=== PATIENT | female | born 1980 | race Caucasian/White ===

== ENCOUNTER 2021-03-19 07:00 | Emergency (ER) | payer BC, SELFPAY ==
--- NOTE | ~2021-03-19 | XR_ITS ---
EXAMINATION: XR lumbar spine 2-3V DATE: 03/19/2021 08:24 INDICATION: Sudden onset right-sided low back pain TECHNIQUE: Anteroposterior and lateral views of the lumbar spine, and cone-down lateral view of the l umbosacral junction were obtained. COMPARISON: None. FINDINGS: 13 degree lumbar levoscoliosis. Sagittal alignment is normal. Vertebral body heights are normal. Mild right-sided disc height loss at L2-L3, L3-L4 and L4-L5. Lumbar facet joints appear unremarkable. Vis ualized portion of the upper sacrum and the bilateral sacroiliac joints are unremarkable. IMPRESSION: 1. Mild lumbar levoscoliosis with mild right-sided disc height loss at L2-L3 through L4-L5. Reviewed, dictated and finalized at location A. IMPRESSION: 1. Mild lumbar levoscoliosis with mild right-sided disc height loss at L2-L3 th rough L4-L5.
[2021-03-19 07:46] VITALS: BP 188/105; PULSE 74; RESP 18; TEMP 36.7; O2SAT 98
--- NOTE | 2021-03-19 07:50 | ED.BACK ---
HPI - Back Pain/Injury General Chief Complaint: Back Pain/Injury Stated Complaint: back pain Time Seen by Provider: 03/19/21 07:50 Source: patient Mode of arrival: ambulatory Limitations: no limitations History of Present Illness HPI Narrative: 40-year-old woman comes in today complaining of severe right lower back pain that started after bending over about 4 5 days ago. Patient states that she has had no other falls or injuries and has no history of prior severe back pain injury or surgery. She states that she has some intermittent numbness of her right upper leg to her knee but denies weakness, incontinence. She denies dysuria, frequent urination and incontinence. MD elicited complaint: back pain Onset (ago): day(s) (5) Timing: constant Severity: severe Quality: aching Location: lumbar spine and right lower back Radiation: buttocks and right upper leg Exacerbating factors: other (Prolonged sitting) Relieving factors: none Context: bending Associated symptoms: numbness Treatments prior to arrival: NSAIDS Work related injury: No Related Data Allergies Allergy/AdvReac Type Severity Reaction Status Date / Time No Known Allergies Allergy Verified 03/19/21 07:44 Review of Systems Review of Systems: All systems reviewed & are unremarkable except as noted in HPI and below Constitutional: Constitutional: Denies chills and Denies fever(s) ENT: Denies nasal congestion and Denies sore throat Cardiovascular: Cardiovascular: Denies chest pain Respiratory: Respiratory: Denies cough and Denies dyspnea Gastrointestinal: Gastrointestinal: Denies abdominal pain, Denies nausea and Denies vomiting Genitourinary: Genitourinary: Denies nocturia, Denies dysuria and Denies urinary incontinence Musculoskeletal: Musculoskeletal: Denies arthralgias and Denies joint swelling Neurologic: Denies vertigo, Denies dizziness, Denies syncope, Denies focal weakness and Reports numbness Allergic/Immunologic: Allergic/Immunologic: Denies lip swelling and Denies throat swelling PMFSH Past Medical History Medical History (Updated 03/19/21 @ 09:10 by Mak Dewitt MD) IBS (irritable bowel syndrome) Prediabetes Surgical History Surgical History H/O section Family History Family History Mother , Age 60 of Heart Failure Diabetes mellitus Heart disease Father Diabetes mellitus Depression Bipolar 1 disorder Grandparent , Unknown No problems noted. Grandparent , Unknown No problems noted. Grandparent No problems noted. 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 Resp: Effort & Inspection: normal respiratory effort and not labored Auscultation: clear to auscultation bilaterally, no rales, no rhonchi and no wheezes Cardio: Rate: regular rate Rhythm: regular rhythm Heart sounds: no murmurs Skin: General skin exam: normal color, no jaundice and no pallor Rashes: no rashes Neuro: General: patient oriented x3, moves all extremities, no focal motor deficits and CN's II-XI intact bilaterally Speech: normal speech Other: Antalgic gait. DTRs 1+ and symmetric in lower extremities. Extrem: General: normal to inspection and no clubbing, cyanosis or edema Psych: Appearance: grossly normal and well kempt Mental Status: ment
[2021-03-19 07:53] LABS: Add Urine Microscopic? YES; Appearance Urine Clear (Clear); Bilirubin Urine Negative (Negative); Blood Urine Negative (Negative); Color Urine Yellow (Yellow); Glucose Urine UA Negative (Negative); Ketones Urine Trace (Negative); Leukocyte Esterase Ur Negative (Negative); Nitrate Urine Negative (Negative); Protein Urine Negative (Negative); Specific Grav Ur >= 1.030 (1.010-1.020); Urobilinogen Urine 0.2 mg/dL (0.2-1.0); pH Urine 5.5 (5.0-8.0)
[2021-03-19 08:00] LABS: Bacteria Urine 3+ /hpf; Mucus Urine Heavy /lpf; RBC Urine 0-2 /hpf (0-2); Squamous Epithelial Cell Urine Moderate /hpf (Few); WBC Urine 0-3 /hpf (0-3)
[2021-03-19 08:01] LABS: Pregnancy On Board Control Positive; Urine Pregnancy Test Negative
[2021-03-19] MEDS: HYDROcodone/acetaminophen (*CRX) 5-325 MG TABLET 1 TAB PO (09:02)
[2021-03-19 09:06] VITALS: BP 159/108; PULSE 79; RESP 18; O2SAT 95
[2021-03-19 09:58] VITALS: BP 161/96; PULSE 66; RESP 17; O2SAT 98
== END 2021-03-19 09:43 | disposition home or self-care (01) ==
PROVIDERS: Emergency Provider Emergency Medicine
DX: M54.50 Low back pain, unspecified (principal); K58.9 Irritable bowel syndrome, unspecified; R73.03 Prediabetes
CPT/HCPCS: 72100; 81001; 81025; 99283; A9270

== ENCOUNTER 2021-05-08 15:06 | Emergency (ER) | payer OTHER, BC, SELFPAY ==
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
[2021-05-08 15:19] VITALS: BP 160/94; PULSE 86; RESP 18; TEMP 36.3; O2SAT 99
[2021-05-08 17:12] VITALS: BP 156/96; PULSE 79; RESP 18; TEMP 36.5; O2SAT 97
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
[2021-05-08] MEDS: ACETAMINOPHEN 500 MG TABLET 1000 MG PO (19:21)
[2021-05-08] MEDS: KETOROLAC (*BKC) 60 MG/2 ML VIAL IM (19:21)
[2021-05-08 19:37] VITALS: BP 155/106; PULSE 83; RESP 18; TEMP 36.3; O2SAT 97
== END 2021-05-08 19:39 | disposition home or self-care (01) ==
PROVIDERS: Emergency Provider Emergency Medicine
DX: S16.1XXA Strain of muscle, fascia and tendon at neck level, initial encounter (principal); K58.9 Irritable bowel syndrome, unspecified; R73.03 Prediabetes; V49.50XA Passenger injured in collision with unspecified motor vehicles in traffic accident, initial encounter
CPT/HCPCS: 72125; 72128; 72131; 96372; 99284; A9270; J1885

== ENCOUNTER 2022-04-25 09:43 | Observation (INO) | payer OTHER, SELFPAY ==
[2022-04-25] VITALS (31 sets, daily range): BP systolic 129–216; BP diastolic 70–115; PULSE 57–93; RESP 12–21; TEMP 36.3–36.6; O2SAT 96–100
--- NOTE | ~2022-04-25 | CT_ITS ---
EXAMINATION: CT brain wo con DATE: 04/25/2022 11:59 INDICATION: Left upper extremity weakness and tingling. TECHNIQUE: Computed tomography (CT) of the head was performed without intravenous contrast. The mA wa s adjusted according to patient size. Iterative reconstruction technique was employed. The dose-lengt h product was 681.00 mGy-cm. COMPARISON: None FINDINGS: There is no intracranial hemorrhage, acute infarction, or abnormal intracranial mass lesion . The ventricles are normal in size. There is mild mucosal thickening in left maxillary sinus. The ma stoid air cells are normal. The orbits are normal. IMPRESSION: 1. Normal brain. Reviewed, dictated and finalized at location A. FINISHING MATERIALS PREPARER IMPRESSION: 1. Normal brain.
--- NOTE | ~2022-04-25 | MR_ITS ---
EXAMINATION: MR cervical spine wo/w con DATE: 04/26/2022 07:13 INDICATION: Left upper extremity paresthesias and weakness. TECHNIQUE: Magnetic resonance imaging (MRI) of the cervical spine was performed without and with 19 m L MultiHance intravenous contrast. COMPARISON: CT cervical spine 05/08/2021 FINDINGS: Bone alignment is normal. Vertebral body heights and intervertebral disc heights are normal . The spinal cord signal intensity is normal. The following disc levels are specifically discussed: C2-C3: The disc does not extend beyond the endplate margin. There is no uncovertebral joint osteoarth ritis. There is mild bilateral facet joint osteoarthritis. There is no neural foraminal stenosis. The re is no central canal stenosis. C3-C4: The disc does not extend beyond the endplate margin. There is mild bilateral uncovertebral sarai nt osteoarthritis. There is mild bilateral facet joint osteoarthritis. There is no neural foraminal s tenosis. There is no central canal stenosis. C4-C5: The disc does not extend beyond the endplate margin. There is mild bilateral uncovertebral sarai nt osteoarthritis. There is mild bilateral facet joint osteoarthritis. There is mild bilateral neural foraminal stenosis. There is no central canal stenosis. C5-C6: There is a central protrusion. There is mild bilateral uncovertebral joint osteoarthritis. The re is mild right facet joint osteoarthritis. There is no neural foraminal stenosis. There is no centr al canal stenosis. C6-C7: The disc does not extend beyond the endplate margin. There is no uncovertebral joint osteoarth ritis. There is no facet joint osteoarthritis. There is no neural foraminal stenosis. There is no stanley tral canal stenosis. C7-T1: The disc does not extend beyond the endplate margin. There is no uncovertebral joint osteoarth ritis. There is no facet joint osteoarthritis. There is no neural foraminal stenosis. There is no stanley tral canal stenosis. IMPRESSION: 1. Mild cervical spondylosis. Reviewed, dictated and finalized at location A. ILITY CLAIMS MANAGER
--- NOTE | ~2022-04-25 | XR_ITS ---
EXAMINATION: XR lumbar puncture diagnostic DATE: 04/26/2022 13:43 INDICATION: Demyelinating disease. TECHNIQUE: The procedure including the risks, benefits, and alternatives was discussed with the patie nt. Risks discussed included spinal headache, bleeding, and infection. The patient understood the ris ks and agreed to proceed. A timeout was performed to verify the patient's name, date of , and procedure to be performed. The skin overlying the L2-L3 level was prepped and draped in usual steri le fashion. Subcutaneous 1% lidocaine was used for local anesthesia. A 20 gauge spinal needle was a dvanced under fluoroscopic guidance. The needle was removed and the entry site was cleaned and dresse d. There were no immediate complications. Fluoroscopy exposure time was 0.1 minutes. The total numbe r of images was 1. FINDINGS: Real-time fluoroscopy demonstrates the needle at the L2-L3 level. The opening pressure was 15 cm water (Normal range is variably defined as 6-20 cm water and up to 25 cm water in obese patient s. Pressure >25 cm water is one of the modified Dandy criteria for idiopathic intracranial hypertensi on). 13 mL of clear, colorless fluid was collected in 4 tubes. IMPRESSION: 1. Successful fluoro-guided lumbar puncture. Reviewed, dictated and finalized at location A. UNICATION ARTS LECTURER
--- NOTE | ~2022-04-25 | MR_ITS ---
EXAMINATION: MR brain/brain stem wo/w con DATE: 04/26/2022 07:13 INDICATION: Left upper extremity paresthesias and weakness. TECHNIQUE: Magnetic resonance imaging (MRI) of the brain and brainstem was performed without and with 19 mL MultiHance intravenous contrast. COMPARISON: Head CT 04/25/2022 FINDINGS: There are scattered areas of nonspecific increased T2-weighted signal intensity in the cere bral white matter. There is no acute ischemic infarct or intracranial hemorrhage. The ventricles are normal in size. There is mucosal thickening in left maxillary sinus. The orbits are normal. The masto id air cells are normal. IMPRESSION: 1. Mild nonspecific cerebral white matter disease. The differential diagnosis includes premature certified nursing attendant jacobo small vessel ischemic disease (especially if the patient has cardiovascular risk factors), demyel inating disease such as multiple sclerosis, drug abuse, vasculitis, or reactive astrocytosis (gliosis ) secondary to nonspecific etiology. Reviewed, dictated and finalized at location A. H PRINTING INSPECTOR IMPRESSION: 1. Mild nonspecific cerebral white matter disease. The differential diagnosis i ncludes premature chronic small vessel ischemic disease (especially if the sylvain ent has cardiovascular risk factors), demyelinating disease such as multiple sc lerosis, drug abuse, vasculitis, or reactive astrocytosis (gliosis) secondary t o nonspecific etiology.
--- NOTE | ~2022-04-25 | US_ITS ---
EXAMINATION: US venous doppler E DATE: 04/26/2022 07:32 INDICATION: Left upper limb swelling TECHNIQUE: Grayscale images without and with compression and Doppler images of the left upper extremi ty veins were obtained. Additional grayscale images of the region of pain at the posterior left upper arm were also obtained. COMPARISON: None. FINDINGS: The left internal jugular vein, subclavian vein, axillary vein, brachial vein, basilic vein, cephalic vein, radial vein, and ulnar vein are patent. Normal appearance to the subcutaneous fat and underlyi ng musculature with no abnormal masses or fluid collections identified at the region of maximal pain at the posterior left upper arm. IMPRESSION: 1. Patent left upper extremity veins. No evidence of venous thrombosis. Reviewed, dictated and finalized at location A. [employer]UT[employer]NT
--- NOTE | ~2022-04-25 | XR_ITS ---
EXAMINATION: XR chest 2V DATE: 04/25/2022 12:35 INDICATION: Left upper extremity weakness and pain and tingling. TECHNIQUE: Frontal and lateral views of the chest were obtained. COMPARISON: None. FINDINGS: The chest demonstrates clear lungs without pneumonia, pleural effusion, or pneumothorax. Th e heart size is normal. IMPRESSION: 1. No acute cardiopulmonary disease. Reviewed, dictated and finalized at location A. MING ASSISTANT
--- NOTE | 2022-04-25 11:33 | ECG_ITS ---
Measurements Intervals [place] Rate: 64 P: 26 ND: 166 QRS: 4 QRSD: 90 T: 4 QT: 453 QTc: 471 Interpretive Statements SINUS RHYTHM BORDERLINE T WAVE ABNORMALITY- INFERIOR LEADS BORDERLINE ECG NO PREVIOUS ECG AVAILABLE FOR COMPARISON Electronically Signed On 04-25-2022 12:51:11 OBSTETRICIAN GYNECOLOGIST by Vladislav Noland D.O.
--- NOTE | 2022-04-25 11:35 | ED.GENADULT ---
HPI - General Adult General Chief complaint: Neuro Symptoms/Deficit <DARIO Deleon Last Filed: 04/25/22 19:57> Stated complaint: LEFT ARM PAIN AND NUMBNESS <DARIO Deleon Last Filed: 04/25/22 19:57> Time Seen by Provider: 04/25/22 11:10 <DARIO Deleon Last Filed: 04/25/22 19:57> Source: patient <DARIO Deleon Last Filed: 04/25/22 19:57> Mode of arrival: ambulatory <DARIO Deleon Filed: 04/25/22 19:57> Limitations: no limitations <DARIO Deleon Filed: 04/25/22 19:57> History of Present Illness HPI narrative: Patient is a 41-year-old female who presents the ED with report of pain, tingling, weakness in left upper extremity. Patient reports she woke up yesterday morning with tingling in her left upper extremity, pain over her upper arm, minimal pain in her left shoulder/left-sided neck. She thought she may have slept on it wrong. She went to work yesterday and reports she felt weak in her left arm and left hand. She states she was dropping things at work and could not get her left hand to do what she wanted. Patient denies any slurred speech, facial droop, vision changes, headache, confusion, difficulty swallowing, difficulty breathing, chest pain, abdominal pain, nausea, vomiting, weakness or tingling of lower extremities. <DARIO Deleon Last Filed: 04/25/22 19:57> Related Data Allergies/adverse reactions: Allergies Allergy/AdvReac Type Severity Reaction Status Date / Time No Known Allergies Allergy Verified 04/25/22 16:04 <DARIO Deleon Last Filed: 04/25/22 19:57> Review of Systems Review of Systems: CONSTITUTIONAL: Denies fever, chills, or sweats. EYES: Denies visual changes. CARDIOVASCULAR: Denies chest pain, palpitations, or edema. RESPIRATORY: Denies cough or dyspnea. GASTROINTESTINAL: Denies abdominal pain, nausea, vomiting, or diarrhea. MUSCULOSKELETAL: Reports left upper extremity pain, left-sided neck pain. NEUROLOGIC: Reports tingling, weakness in left upper extremity. Denies dizziness, dysphagia, headache, numbness, slurred speech, facial droop, weakness or tingling in lower extremities. <Janae Rob PA-C - Last Filed: 04/25/22 19:57> All systems reviewed & are unremarkable except as noted in HPI and below <Janae Rob PA-C - Last Filed: 04/25/22 19:57> [facility] Past Medical History Medical History: Medical History (Updated 04/25/22 @ 14:09 by Janae Rob PA-C) History of pre-eclampsia IBS (irritable bowel syndrome) Prediabetes <Janae Rob PA-C - Last Filed: 04/25/22 19:57> Surgical History Surgical History: Surgical History H/O section <Janae Rob PA-C - Last Filed: 04/25/22 19:57> Family History Family History: Family History Mother , Age 60 of Heart Failure Diabetes mellitus Heart disease Father Diabetes mellitus Depression Bipolar 1 disorder Grandparent , Unknown No problems noted. Grandparent , Unknown No problems noted. Grandparent No problems noted. Grandparent Diabetes mellitus Liver failure <Janae Rob PA-C - Last Filed: 04/25/22 19:57> Social History Social History: Social History Smoking status: Former smoker Additional smoking assessment comments: smoked for 15 years Alcohol intake: current Drinks per week: 14 Alcohol use details: has 2 beers or glasses of wine a day Substance use: never Substance use type: does not use Has the Lack of Transportation Kept You From Medical Appointments or From Getting Medications?: No Within the Past 12 Months, Were You Worried
[2022-04-25] MEDS: SODIUM CHLORIDE 0.9% IV 1,000 ML 999 ML IV CONT (12:00)
[2022-04-25 12:07] LABS: Basophils Absolute Auto 0.1 K/mm3 (0.0-0.1); Basophils Percent Auto 0.8 % (0.2-1.2); Eosinophils Absolute Auto 0.1 K/mm3 (0-0.3); Eosinophils Percent Auto 1.8 % (0-4.4); Hematocrit 40.8 % (37.0-47.0); Hemoglobin 13.6 g/dL (12.0-15.0); Immature Granulocyte Absolute 0.02 K/mm3 (0.00-0.031); Immature Granulocyte Percent A 0.3 % (0-0.5); Lymphocytes Absolute Auto 2.83 K/mm3 (0.9-3.2); Lymphocytes Percent Auto 38.2 % (18.3-44.2); Mean Corpuscular HGB Conc 33.3 g/dl (32-36); Mean Corpuscular Hemoglobin 32.2 pg (26-34); Mean Corpuscular Volume 96.7 fl (80-100); Mean Platelet Volume 9.8 fl (7.4-10.4); Monocytes Absolute Auto 0.3 K/mm3 (0.1-0.6); Monocytes Percent Auto 4.6 % (2.6-8.5); Neutrophils Percent Auto 54.3 % (45.5-73.1); Platelet Count Result 269 k/mm3 (150-375); Red Blood Count 4.22 M/mm3 (4.2-5.4); Red Cell Distribution Width 13.3 % (11.5-14.5); White Blood Count 7.4 K/mm3 (4.5-10.0)
[2022-04-25 12:19] LABS: Alanine Aminotransferase 28 U/L (6-35); Albumin Level 4.6 g/dL (3.5-5.1); Alkaline Phosphatase 95 U/L (38-126); Anion Gap 15 mmol/L (8-16); Aspartate Amino Transferase 33 U/L (14-36); Bilirubin,Total 0.5 mg/dL (0.2-1.3); Blood Urea Nitrogen 14 mg/dL (7-17); Calcium 9.2 mg/dL (8.4-10.2); Carbon Dioxide 28 mmol/L (22-30); Chloride 97 mmol/L (98-107); Estimated Glomerular Filt Rate > 60; Glucose 92 mg/dL (65-110); Potassium 3.7 mmol/L (3.4-5.0); Sodium 140 mmol/L (137-145)
[2022-04-25 12:31] LABS: Troponin I < 0.012 ng/mL (0.000-0.034)
[2022-04-25] MEDS: hydrALAZINE HCL 20 MG/ML VIAL 10 MG IV PUSH ×2 (14:44→18:27)
--- NOTE | 2022-04-25 15:30 | PM.IMHP ---
H&P: HPI History of Present Illness Date/Time: 04/25/22 15:30 Chief Complaint: Left arm numbness and pain. Narrative: This is a very pleasant 41-year-old female without significant medical history who presented to the ED for evaluation of left arm numbness and pain. She woke up yesterday morning from sleep with tingling and aching discomfort in the left arm. Initially she thought she may have slept on it wrong and her reports that she was sleeping in a strange position. She had difficulties putting her hair in a ponytail because of the symptoms and while at work she noticed that her left arm and hand were weaker than usual and she was clumsy and she dropped several things as her left hand did not seem to be doing what she wanted it to do. Additionally she feels that the arm is a bit shaking and she has noticed muscle twitching which is unusual for her. On arrival to the emergency department her blood pressure was 188/105 and it has been persistently elevated despite receiving hydralazine 10 milligrams IV push x1. She had preeclampsia with her last in 2014 and since that time her blood pressures have been running pretty consistently in the 130s over 80s. With further questioning she has lost 100 pounds in the last 6 months through diet and exercise. She has been alternating walking and running 45 minutes several days a week and she does HIIT training and lifts weights however she does not think that she has injured herself. She goes on to say that over the last week or so she has been increasingly tired with her workouts, having to cut them off early due to shortness of breath and fatigue. She has occasional lightheadedness but no syncope or near syncope. She denies headache, vertigo, facial droop, dysarthria, dysphagia, injury, chest pain, pleuritic pain, palpitations, orthopnea, paroxysmal nocturnal dyspnea, nausea, vomiting, sweats, and lower extremity edema. Review of Systems Review of Systems: Twelve systems were reviewed and are negative except for as per HPI. [facility] [place] Past Medical History Medical History (Updated 04/25/22 @ 23:10 by Aurelia Landaverde PA-C) History of pre-eclampsia (2014) Irritable bowel syndrome Prediabetes Surgical History Surgical History (Updated 04/25/22 @ 23:07 by Aurelia Landaverde PA-C) H/O section History of 3 sections History of bunionectomy Family History Family History Mother , Age 60 of Heart Failure Diabetes mellitus Heart disease Father Diabetes mellitus Depression Bipolar 1 disorder Grandparent , Unknown No problems noted. Grandparent , Unknown No problems noted. Grandparent No problems noted. Grandparent Diabetes mellitus Liver failure Social History Social History (Updated 04/25/22 @ 23:07 by Aurelia Landaverde PA-C) Social History: Code status: Full code. Smoking status: Former smoker Additional smoking assessment comments: smoked for 15 years Alcohol intake: current Drinks per week: 14 Alcohol use details: has 2 beers or glasses of wine a day Substance use: never Substance use type: does not use Has the Lack of Transportation Kept You From Medical Appointments or From Getting Medications?: No Within the Past 12 Months, Were You Worried Whether Your Food Would Run Out Before You Got Money to Buy More?: Never True What is Your Housing Situation Today?: I Have Housing Are You Worried That in the Next 2 Months, You May Not Have Your Own Housing to Live In?: No Do You Have Trouble Paying Your Heating Or Electricity Bill?: No Do You Have Trouble Paying For Medicines?: No Are You Currently Unemployed and Looking for Work?: No Highest Level of Education Completed: Associate Degree Do You Have Trouble With Childcare or the Care of a Family Member?: No Additional living arrangements comments
[2022-04-25 15:42] LABS: SARS-CoV-2 RNA PCR Negative
--- NOTE | 2022-04-25 15:58 | ADMGEN ---
This patient, Linda Hadley, was admitted to [facility] Surg Room 327-01. Patient/family oriented to hospital policies and general routines including ID bracelet, bed and alarms, visiting hours, pain management, procedures, bathroom and other care routines, personal items, smoking policy, room service/diet, and visiting hours. Information on how to activate the Rapid Response Team has been discussed. Patient/Family are encouraged to report perceived risks to care and to ask questions if they do not understand what they are told or what they should do.
--- NOTE | 2022-04-25 18:30 | PC.NURSE ---
Sandra [place] notified of bp 200/100 and prn hydralazine given./
[2022-04-25 19:18] LABS: CRP < 0.5 mg/dL (<1.0); Creatine Kinase 85 U/L (30-135)
[2022-04-25 19:25] LABS: Erythrocyte Sedimentation Rate 35 mm/hr (0-20)
[2022-04-25 21:32] LABS: Free T4 Free Thyroxine Reflex 1.11 ng/dL (0.78-2.19)
[2022-04-25 22:20] LABS: Total Triiodothyronine (T3) 1.64 NG/ML (0.97-1.69)
[2022-04-26] VITALS (8 sets, daily range): BP systolic 149–170; BP diastolic 66–86; PULSE 56–77; RESP 16–20; TEMP 35.6–36.5; O2SAT 96–100
[2022-04-26 06:15] LABS: Hematocrit 39.6 % (37.0-47.0); Hemoglobin 13.4 g/dL (12.0-15.0); Mean Corpuscular HGB Conc 33.8 g/dl (32-36); Mean Corpuscular Hemoglobin 32.3 pg (26-34); Mean Corpuscular Volume 95.4 fl (80-100); Mean Platelet Volume 9.8 fl (7.4-10.4); Platelet Count Result 214 k/mm3 (150-375); Red Blood Count 4.15 M/mm3 (4.2-5.4); Red Cell Distribution Width 13.2 % (11.5-14.5); White Blood Count 5.3 K/mm3 (4.5-10.0)
[2022-04-26 06:23] LABS: Potassium 3.9 mmol/L (3.4-5.0)
[2022-04-26 06:33] LABS: Anion Gap 11 mmol/L (8-16); Blood Urea Nitrogen 8 mg/dL (7-17); Calcium 9.1 mg/dL (8.4-10.2); Carbon Dioxide 23 mmol/L (22-30); Chloride 104 mmol/L (98-107); Cholesterol 228 mg/dL (0-200); Estimated Glomerular Filt Rate > 60; Glucose 96 mg/dL (65-110); HDL Direct 72 mg/dL; Magnesium 2.1 mg/dL (1.6-2.3); Sodium 138 mmol/L (137-145); Triglycerides 151 mg/dL (<150)
[2022-04-26 06:34] LABS: LDL Cholesterol Direct 117 mg/dL
[2022-04-26] MEDS: ASPIRIN 81 MG ENTERIC TABLET PO (08:27)
--- NOTE | 2022-04-26 10:07 | WPDNEURCNPN ---
Assessment and Plan Assessment and plan (1) Weakness of left upper extremity: Code(s): R29.898 - Other symptoms and signs involving the musculoskeletal system Status: Acute (2) Arm paresthesia, left: Code(s): R20.2 - Paresthesia of skin Status: Acute (3) Hypertensive urgency: Code(s): I16.0 - Hypertensive urgency Status: Acute Assessment and Plan: Ms. Hadley is a 41 year old female with a history of HTN and prediabetes presenting for evaluation of LUE weakness. Initially BP elevated, so there was concern that it may be due to hypertensive emergency, but BP is lower and patient is still reporting weakness of the left hand. MRI showed non specific areas of white matter disease, but no contrast enhancement. Given patient's age, will need to evaluate for demyelinating disease such as multiple sclerosis. MS related labs will take some time to come back so we have discussed empirically treating with steroids once the lumbar puncture is complete since patient is still having weakness in the left hand and believes that it may interfere with her ability to work. Patient is agreeable, but is apprehensive about staying in the hospital for several days for IV steroids. Other etiologies to consider are radiculopathy (although cervical spine MRI only showed mild spondylosis) or compressive neuropathy (ulnar or carpal tunnel syndrome). Plan - Will obtain lumbar puncture with CSF studies (cell count, protein, glucose, culture/gram stain, oligoclonal bands) - After LP, can discharge with high dose oral steroids given symptoms are relatively mild (Prednisone 1250 mg per day x 3 days) with PPI - Will need follow-up in Neurology clinic in 3 months Consult date: 04/26/22 Time Seen: 10:07 Reason for consult: LUE weakness HPI: Linda Hadley is a 41 year old female with a history of HTN and diabetes presenting for evaluation of left upper extremity numbness/weakness. In the morning 04/24, patient noted tingling in the left upper extremity as well as tenderness over the proximal left arm. Throughout the day she noted that her left arm was weaker, and she was having trouble with fine motor activity. She presented to the ED yesterday where she was noted to have left upper extremity pronator drift, but no other findings. Her BP on admission was 216/106. CT head was negative for acute process. She has never had episodes of focal weakness or numbness in the past. No prior history of unilateral vision loss. She had an MRI brain w/wo which showed T2 hyperintense lesion in the juxtacortical and periventricular areas without any contrast enhancement. MRI cervical spine showed mild spondylosis. Patient reports that her left sided weakness has improved since admission, but she still feels that she has difficulty with fine motor movement in the left hand. Review of Systems Constitutional: Constitutional: Reports weakness Eyes: Eyes: Reports no additional eye complaints ENT: Reports system reviewed and no additional complaints, except as documented Cardiovascular: Cardiovascular: Reports no additional cardiovascular complaints Respiratory: Respiratory: Reports no additional respiratory complaints Gastrointestinal: Gastrointestinal: Reports no additional gastrointestinal complaints Genitourinary: Genitourinary: Reports no additional female genitourinary complaints Musculoskeletal: Musculoskeletal: Reports no additional musculoskeletal complaints Integumentary/Breasts: Skin/Breast: Reports system reviewed and no additional complaints, except as docu Neurologic: Reports as per HPI Psychiatric: Psychiatric: Reports no additional psychiatric complaints PMFSH Past Medical History Medical History History of pre-eclampsia (2014) Irritable bowel syndrome Prediabetes Surgical History Surgical History H/O section Hi
[2022-04-26 10:59] LABS: Prothrombin Time 13.2 Seconds (11.1-14.7)
[2022-04-26 11:00] LABS: Partial Thromboplastin Time 30.6 SECONDS (22.3-36.8)
--- NOTE | 2022-04-26 13:06 | PM.IMPN ---
Progress Note: A&P Assessment and Plan (1) Weakness of left upper extremity: Code(s): R29.898 - Other symptoms and signs involving the musculoskeletal system Status: Acute Assessment and Plan: The patient presented for evaluation of left arm weakness and pain for couple of days as detailed in HPI. She reports dropping things in her left hand, as well as difficulty pulling her hair back and gripping. BP 216/106 on admission and improved with IV hydralazine. Hydralazine p.r.n. for hypertension CT head no acute findings. brain MRI with mild nonspecific cerebral white matter disease. Cervical spine MRI with mild cervical spondylosis. Neurology has been consulted and their input is appreciated. Lumbar puncture completed on 04/26/22 and fluid analysis pending. Will start high-dose pulse dose prednisone for possible MS exacerbation- 675 mg PO BID x3 days. This dose was discussed with Neurology who recommends this dosing as well. Echocardiogram pending Left upper extremity venous Doppler negative for DVT. (2) Arm paresthesia, left: Code(s): R20.2 - Paresthesia of skin Status: Acute Assessment and Plan: As above. (3) Hypertensive urgency: Code(s): I16.0 - Hypertensive urgency Status: Acute Assessment and Plan: BP 216/106 on admission and improved with IV hydralazine. Hydralazine p.r.n. for hypertension No prior history of hypertension. BP 149/66 and HR 77 Started on aspirin 81 mg daily (4) Heart murmur: Code(s): R01.1 - Cardiac murmur, unspecified Status: Acute Assessment and Plan: Echocardiogram has been ordered to evaluate her cardiac murmur Doppler ultrasound ordered to rule out DVT given mild swelling. Plan CODE STATUS: FULL CODE Disposition: home when symptoms improved. Possible discharge in am if stable on high-dose steroids. Time Spent With Patient Time with patient: 15 - 25 minutes Subjective Date/time seen: 04/26/22 13:06 She still has some hand grasp weakness and paresthesia to her left hand and forearm. She thinks is might be slightly improved. She also remembers an episode of transient blurry vision to both eyes in January of last year that she attributed to being borderline diabetic. Review of Systems Review of Systems: All systems reviewed & are unremarkable except as noted in HPI and below Exam Narrative: General: no distress. Lying in bed. HEENT: Normocephalic, PERRL, EOMI. Sclera anicteric. Oral mucosa moist. Oropharynx clear. Hearing grossly intact. Neck: Supple. No midline vertebral tenderness. No tenderness palpation over the paraspinous muscles. Faint carotid bruits versus more likely radiation of cardiac murmur. Respiratory: Lungs are clear to auscultation bilaterally. Cardiovascular: Regular rate and rhythm with S1-S2. Systolic murmur heard at the upper sternal border but appreciated throughout the precordium. Gastrointestinal: Abdomen is soft, nontender, and nondistended with positive bowel sounds. Skin: Warm and dry. No rash or lesions on limited exam. Extremities: No cyanosis, clubbing, or lower extremity edema. Mild swelling over the left biceps and dorsum of the left hand. Radial and pedal pulses intact. Neurological: Alert and orienteds4. Cranial nerves 2-12 intact. Speech is clear. No facial asymmetry. Left hand black pickler slightly weaker when compared to the right. Normal ctldji-pr-whjo and rapid alternating movements. No pronator drift although she appears to strain to hold her left arm equal to right. Sensation mildly decreased left hand and anterior forearm. Intact heel to araujo. Psychiatric: Pleasant and cooperative with normal mood and affect. Objective Data Vital Signs Vital Signs: Vital Signs - 24 hr 04/25/22 13:28 04/25/22 14:46 04/25/22 15:01 Temperature Pulse Rate 68 78 78 Respiratory Rate 19 21 H 16 Blood Pressure 170/81 H 203/115 H 183/74 H Pulse Oximetry 100 100 100
[2022-04-26 13:51] LABS: Appearance CSF Clear (Clear); CSF source CSF; Color CSF Colorless (Colorless); Red Blood Cell CSF 4 (0-2)
[2022-04-26 13:54] LABS: Nucleated Cell CSF 0 /uL (0-5)
[2022-04-26 13:56] LABS: Glucose CSF 60 mg/dL (40-70); Total Protein CSF 40 mg/dL (12-60)
--- NOTE | 2022-04-26 15:19 | PHAR ---
VERIFIED PREDNISONE 675MG DOSE WITH CATY JONES - PATIENT IS ON HIGH DOSE STEROID FOR MS EXACERBATION
[2022-04-26] MEDS: predniSONE 20 MG TABLET 660 MG PO (17:44)
[2022-04-26] MEDS: predniSONE 5 MG TABLET 15 MG PO (17:46)
[2022-04-26] MEDS: MELATONIN 5 MG TABLET PO (21:13)
[2022-04-27] VITALS: PULSE 56
[2022-04-27 04:00] VITALS: PULSE 54
[2022-04-27 06:00] VITALS: BP 163/96; PULSE 73; RESP 18; TEMP 35.8; O2SAT 100
[2022-04-27 06:10] LABS: Hematocrit 43.3 % (37.0-47.0); Hemoglobin 14.6 g/dL (12.0-15.0); Mean Corpuscular HGB Conc 33.7 g/dl (32-36); Mean Corpuscular Hemoglobin 32.2 pg (26-34); Mean Corpuscular Volume 95.4 fl (80-100); Mean Platelet Volume 10.1 fl (7.4-10.4); Platelet Count Result 238 k/mm3 (150-375); Red Blood Count 4.54 M/mm3 (4.2-5.4); White Blood Count 4.9 K/mm3 (4.5-10.0)
[2022-04-27 08:00] VITALS: PULSE 73
[2022-04-27] MEDS: predniSONE 20 MG TABLET 660 MG PO (08:18)
[2022-04-27] MEDS: ASPIRIN 81 MG ENTERIC TABLET PO (08:19)
[2022-04-27] MEDS: predniSONE 5 MG TABLET 15 MG PO (08:19)
[2022-04-27 08:40] LABS: Alanine Aminotransferase 28 U/L (6-35); Albumin Level 4.8 g/dL (3.5-5.1); Alkaline Phosphatase 84 U/L (38-126); Anion Gap 14 mmol/L (8-16); Aspartate Amino Transferase 22 U/L (14-36); Bilirubin,Total 0.5 mg/dL (0.2-1.3); Blood Urea Nitrogen 8 mg/dL (7-17); Carbon Dioxide 25 mmol/L (22-30); Chloride 101 mmol/L (98-107); Estimated Glomerular Filt Rate > 60; Glucose 152 mg/dL (65-110); Potassium 3.8 mmol/L (3.4-5.0); Sodium 140 mmol/L (137-145)
--- NOTE | 2022-04-27 08:51 | WPDNEUROPN ---
Progress Note: A&P Assessment and Plan (1) Weakness of left upper extremity: Code(s): R29.898 - Other symptoms and signs involving the musculoskeletal system Status: Acute (2) Arm paresthesia, left: Code(s): R20.2 - Paresthesia of skin Status: Acute (3) Hypertensive urgency: Code(s): I16.0 - Hypertensive urgency Status: Acute Plan Ms. Hadley is a 41 year old female with a history of HTN and prediabetes presenting for evaluation of LUE weakness. Initially BP elevated, so there was concern that it may be due to hypertensive emergency, but after BP normalized, patient was still reporting weakness of the left hand. MRI showed non specific areas of white matter disease, but no contrast enhancement. Given patient's age, recommended evaluation for demyelinating disease such as multiple sclerosis. MS related labs will take some time to come back so she was treated empirically with steroids since she was still having weakness/sensory changes of the left hand (now improved). Other etiologies to consider are radiculopathy (although cervical spine MRI only showed mild spondylosis) or compressive neuropathy (ulnar or carpal tunnel syndrome). Plan - CSF MS panel pending - High dose prednisone 1250mg daily x 3 days - Will need follow-up in Neurology clinic in 3 months - Ok to discharge Subjective Date/time seen: 04/27/22 08:51 Interval history: Linda Hadley is a 41 year old female with a history of HTN and diabetes presenting for evaluation of left upper extremity numbness/weakness. In the morning 04/24, patient noted tingling in the left upper extremity as well as tenderness over the proximal left arm. Throughout the day she noted that her left arm was weaker, and she was having trouble with fine motor activity. She presented to the ED yesterday where she was noted to have left upper extremity pronator drift, but no other findings. Her BP on admission was 216/106. CT head was negative for acute process. She has never had episodes of focal weakness or numbness in the past. No prior history of unilateral vision loss. She had an MRI brain w/wo which showed T2 hyperintense lesion in the juxtacortical and periventricular areas without any contrast enhancement. MRI cervical spine showed mild spondylosis. Patient feels that numbness and weakness has improved since yesterday. She is still having some difficulty with typing with her left hand. She had lumbar puncture yesterday. Cell count and protein were normal. MS panel is pending. Patient reports remote history of bilateral blurry vision that was transient, and also lower back pain. Review of Systems Constitutional: Constitutional: Reports no additional constitutional complaints Eyes: Eyes: Reports no additional eye complaints ENT: Reports system reviewed and no additional complaints, except as documented Cardiovascular: Cardiovascular: Reports no additional cardiovascular complaints Respiratory: Respiratory: Reports no additional respiratory complaints Gastrointestinal: Gastrointestinal: Reports diarrhea Genitourinary: Genitourinary: Reports no additional female genitourinary complaints Musculoskeletal: Musculoskeletal: Reports no additional musculoskeletal complaints Integumentary/Breasts: Skin/Breast: Reports system reviewed and no additional complaints, except as docu Neurologic: Reports as per HPI Psychiatric: Psychiatric: Reports no additional psychiatric complaints Exam Const: General: comfortable and no acute distress HENMT: Mouth: Yes moist mucous membranes Eyes: Pupils: Equal, round and reactive pupils present EOM: EOMs intact bilaterally Resp: Effort & Inspection: normal respiratory effort Auscultation: clear to auscultation bilaterally Cardio: Rate: regular rate Rhythm: regular rhythm GI: GI Palp: Yes Soft to palpation Auscultation: normal bowel sounds Skin: General skin exam: normal color Neuro: Other: AOx3, Pupil
[2022-04-27] MEDS: ACETAMINOPHEN 325 MG TABLET 650 MG PO (10:58)
[2022-04-27] MEDS: amLODIPine BESYLATE 5 MG TABLET PO (11:00)
[2022-04-27 12:00] VITALS: PULSE 83
--- NOTE | 2022-04-27 14:37 | PM.DS ---
DS: Admitting Diagnosis Discharge Date 04/27/2022 Admitting Diagnosis Left upper extremity weakness DS: Discharge Diagnosis Discharge Diagnosis (1) Weakness of left upper extremity: Code(s): R29.898 - Other symptoms and signs involving the musculoskeletal system Status: Acute Assessment and Plan: The patient presented for evaluation of left arm weakness and pain for couple of days as detailed in HPI. She reports dropping things in her left hand, as well as difficulty pulling her hair back and gripping. She was seen in consultation by Neurology during admission. CT of the head showed no acute findings. Brain MRI with mild nonspecific cerebral white matter disease. Cervical spine MRI with mild cervical spondylosis. Lumbar puncture completed on 04/26/2022 with fluid analysis pending at time of discharge. Concern for MS and CSF MS panel is pending. Started on high dose prednisone for possible MS exacerbation - 625 mg BID for total of 3 days. Follow up with Neurology as an outpatient to review LP results and monitor. LUE venous doppler negative for DVT. Pt had symptomatic improvement following steroids. (2) Arm paresthesia, left: Code(s): R20.2 - Paresthesia of skin Status: Acute Assessment and Plan: As above. (3) Hypertensive urgency: Code(s): I16.0 - Hypertensive urgency Status: Acute Assessment and Plan: BP 216/106 on admission and improved with IV hydralazine. No prior history of hypertension. Blood pressures remained elevated in the 160s-180s systolic. Started on amlodipine 5 mg daily with BP in 160s systolic at time of discharge. Instructed to monitor blood pressures at home and follow with PCP in 1 week for monitoring. (4) Heart murmur: Code(s): R01.1 - Cardiac murmur, unspecified Status: Acute Assessment and Plan: Noted to have systolic murmur on exam. Echocardiogram not able to be completed during admission therefore patient will follow up with PCP to obtain. DS: Summary Hospital Course Hospital Course: Date of admission: 04/25/2022 Date of discharge: 04/27/2022 Linda Snider is a 41-year-old female with a history of IBS and prediabetes who presented to the emergency department on 04/25/2022 with complaints of pain, tingling, and weakness of her left upper extremity. On presentation to the ED, patient was hypertensive to 216/106, additional vital signs stable, laboratory workup unremarkable, troponin negative, CT of the head showed normal brain and CXR showed no acute cardiopulmonary disease. Patient was admitted to the hospitalist service for further evaluation and management was seen in consultation by Neurology. Please see above for further details. Patient had symptomatic improvement with high-dose prednisone which she will continue as an outpatient. She will follow-up with neurology for further monitoring. She felt comfortable with plans for return home and was discharged in hemodynamically stable condition on 04/27/2022. Discussed with the patient and her worrisome signs and symptoms for which to monitor and she was educated on her medications. I arranged follow up appointment with her PCP on 05/05/22. Time Spent with Patient Time attestation: Total time spent providing and/or coordinating discharge services: 50 minutes Time spent: Greater than 30 minutes Specific discharge activities: Patient education. Communication with specialists and outpatient pharmacy regarding prednisone. Call to PCP to schedule outpatient follow up appointment. Exam Narrative: General: Well-nourished, well-appearing 41-year-old female, sitting up in bed, comfortable, NARD Neuro: awake, alert and oriented x4, speech clear, no focal neuro deficits noted HEENMT: normocephalic, atraumatic, EOMI, sclerae anicteric, moist oral mucosa Respiratory: clear to auscultation bilaterally, nonlabored breathing Cardio: regular rate, regular rhythm with
[2022-05-02 09:26] LABS: Albumin, CSF 14.8 mg/dL (8.0-42.0); Albumin, Serum 3.7 g/dL (3.5-5.2); IgG Index, CSF 0.49 (<0.66); IgG, CSF 1.9 mg/dL (0.8-7.7); Immunoglobulin G, Serum 967 mg/dL (600-1640); Myelin Basic Protein, CSF <2.0 mcg/L (<=4.0); Synthesis Rate IgG, CSF -2.9 mg/24 h (-9.9-3.3)
== END 2022-04-27 15:15 | disposition home or self-care (01) ==
LOC: ANHED 14:52 → ANH3MEDSUR 15:20
PROVIDERS: Nurse Practitioner Family; Physician Assistant; Student in an Organized Health Care Education/Training Program; Admitting Provider Hospitalist; Emergency Provider Emergency Medicine; PCP Family Medicine Sports Medicine; Visit Provider Internal Medicine
DX: R29.898 Other symptoms and signs involving the musculoskeletal system (principal); R20.2 Paresthesia of skin; I16.0 Hypertensive urgency; R01.1 Cardiac murmur, unspecified; R90.82 White matter disease, unspecified; M47.812 Spondylosis without myelopathy or radiculopathy, cervical region; M79.622 Pain in left upper arm; M54.2 Cervicalgia; K58.9 Irritable bowel syndrome, unspecified; R73.03 Prediabetes; Z20.822 Contact with and (suspected) exposure to COVID-19; F10.90 Alcohol use, unspecified, uncomplicated; Z87.891 Personal history of nicotine dependence; Z83.3 Family history of diabetes mellitus; Z82.49 Family history of ischemic heart disease and other diseases of the circulatory system
CPT/HCPCS: 36415; 62328; 70450; 70553; 71046; 72156; 80048; 80053; 80061; 82040; 82042; 82550; 82784; 82945; 83735; 83873; 83916; 84157; 84439; 84443; 84480; 84484; 85025; 85027; 85610; 85652; 85730; 86140; 87070; 89051; 93005; 93971; 96361; 96374; 96376; 99285; A9270; A9577; G0378; J0360; J7030; J7512; U0003; U0005

== ENCOUNTER 2022-05-11 10:56 | Emergency (ER) | payer OTHER, SELFPAY ==
[2022-05-11] VITALS (26 sets, daily range): BP systolic 143–177; BP diastolic 71–116; PULSE 77–97; RESP 10–31; TEMP 36.9; O2SAT 95–100
--- NOTE | ~2022-05-11 | XR_ITS ---
EXAMINATION: XR chest 2V DATE: 05/11/2022 12:36 INDICATION: Arm tingling. TECHNIQUE: Frontal and lateral views of the chest were obtained. COMPARISON: Chest 2 views 04/25/2022 FINDINGS: The chest demonstrates clear lungs without pneumonia, pleural effusion, or pneumothorax. Th e heart size is normal. IMPRESSION: 1. No acute cardiopulmonary disease. Reviewed, dictated and finalized at location A. ROASTER
--- NOTE | 2022-05-11 11:49 | ECG_ITS ---
Measurements Intervals Gary Rate: 78 P: -62 WY: 145 QRS: 14 QRSD: 84 T: 9 QT: 390 QTc: 445 Interpretive Statements SINUS RHYTHM NONSPECIFIC T-WAVE ABNORMALITY- ANT/INF LEADS BORDERLINE ECG COMPARED TO ECG 04/25/2022 12:08:13 NO SIGNIFICANT CHANGES Electronically Signed On 05-11-2022 12:28:15 RUG SCRATCHER by Vladislav Noland D.O.
[2022-05-11 12:34] LABS: Basophils Percent Auto 0.3 % (0.2-1.2); Eosinophils Absolute Auto 0.1 K/mm3 (0-0.3); Eosinophils Percent Auto 0.8 % (0-4.4); Hematocrit 36.8 % (37.0-47.0); Hemoglobin 12.8 g/dL (12.0-15.0); Immature Granulocyte Absolute 0.05 K/mm3 (0.00-0.031); Immature Granulocyte Percent A 0.4 % (0-0.5); Lymphocytes Absolute Auto 1.77 K/mm3 (0.9-3.2); Lymphocytes Percent Auto 15.4 % (18.3-44.2); Mean Corpuscular HGB Conc 34.8 g/dl (32-36); Mean Corpuscular Hemoglobin 32.2 pg (26-34); Mean Corpuscular Volume 92.7 fl (80-100); Mean Platelet Volume 9.4 fl (7.4-10.4); Monocytes Absolute Auto 0.4 K/mm3 (0.1-0.6); Monocytes Percent Auto 3.7 % (2.6-8.5); Neutrophils Absolute Auto 9.1 K/mm3 (1.3-6.7); Neutrophils Percent Auto 79.4 % (45.5-73.1); Platelet Count Result 264 k/mm3 (150-375); Red Blood Count 3.97 M/mm3 (4.2-5.4); Red Cell Distribution Width 12.9 % (11.5-14.5); White Blood Count 11.5 K/mm3 (4.5-10.0)
[2022-05-11 12:40] LABS: Alanine Aminotransferase 49 U/L (6-35); Albumin Level 4.7 g/dL (3.5-5.1); Alkaline Phosphatase 107 U/L (38-126); Anion Gap 12 mmol/L (8-16); Aspartate Amino Transferase 43 U/L (14-36); Bilirubin,Total 0.7 mg/dL (0.2-1.3); Blood Urea Nitrogen 12 mg/dL (7-17); Calcium 9.6 mg/dL (8.4-10.2); Carbon Dioxide 25 mmol/L (22-30); Chloride 103 mmol/L (98-107); Estimated CRCL calculation 127 ml/min; Estimated Glomerular Filt Rate > 60; Glucose 99 mg/dL (65-110); Potassium 3.9 mmol/L (3.4-5.0); Sodium 140 mmol/L (137-145)
[2022-05-11 12:50] LABS: INR 1.1; Prothrombin Time 13.4 Seconds (11.1-14.7)
[2022-05-11 12:51] LABS: Partial Thromboplastin Time 32.7 SECONDS (22.3-36.8)
[2022-05-11 12:52] LABS: Troponin I < 0.012 ng/mL (0.000-0.034)
[2022-05-11 13:06] LABS: Influenza A QL RT-PCR Negative (Negative); Influenza B QL RT-PCR Negative (Negative); SARS-CoV-2 RNA PCR Negative
[2022-05-11 15:09] LABS: Troponin I < 0.012 ng/mL (0.000-0.034)
--- NOTE | 2022-05-11 15:26 | ED.GENADULT ---
HPI - General Adult General Chief complaint: Anxiety Stated complaint: htn, shaking Time Seen by Provider: 05/11/22 11:19 History of Present Illness HPI narrative: Patient is a 41-year-old female who presents ER with chest tightness. Reports had feeling of impending doom while driving. She had some tingling in her arms. Denies any new stress despite the fact that she was recently worked up with arm numbness and reports that she could potentially have MS. She has no exertional chest pain. No fevers or chills or sweats. Still feels slight anxiousness. No history of heart disease. Related Data Allergies Allergy/AdvReac Type Severity Reaction Status Date / Time No Known Allergies Allergy Verified 04/25/22 16:04 Review of Systems Review of Systems: All systems reviewed & are unremarkable except as noted in HPI and below Constitutional: Constitutional: Denies chills, Denies fatigue and Denies fever(s) ENT: Denies nasal congestion and Denies sore throat Cardiovascular: Cardiovascular: Reports chest pain, Reports rapid heart rate and Denies radiating jaw, neck or arm pain Respiratory: Respiratory: Denies cough, Denies dyspnea and Denies wheezing Gastrointestinal: Gastrointestinal: Denies abdominal pain, Denies nausea and Denies vomiting Psychiatric: Psychiatric: Reports anxiety, Denies depression and Denies homicidal ideation [facility] Past Medical History Medical History History of pre-eclampsia (2014) Irritable bowel syndrome Prediabetes Surgical History Surgical History H/O section History of 3 sections History of bunionectomy Family History Family History Mother , Age 60 of Heart Failure Diabetes mellitus Heart disease Father Diabetes mellitus Depression Bipolar 1 disorder Grandparent , Unknown No problems noted. Grandparent , Unknown No problems noted. Grandparent No problems noted. Grandparent Diabetes mellitus Liver failure Social History Social History Social History: Code status: Full code. Smoking status: Former smoker Additional smoking assessment comments: smoked for 15 years Alcohol intake: current Drinks per week: 14 Alcohol use details: has 2 beers or glasses of wine a day Substance use: never Substance use type: does not use Lack of Transportation: No Lack of Food: Never True Current Housing: I Have Housing Concerned About Future Housing: No Difficulty Paying Gas/Electric Bills: No Difficulty Paying for Meds: No Currently Unemployed: No Education: Associate Degree Difficulty w/ Childcare or Family Care: No Additional living arrangements comments: The patient lives with her and 3 children in [place]. Additional occupation/education comments: Works at [employer]. Spiritual care concerns: No Exam Narrative: GENERAL: Well-appearing, well-nourished, and in no acute distress. HEAD: Normocephalic, atraumatic. EYES: PERRL and EOMI. ENT: Mucous membranes moist. CHEST: Clear to auscultation. No respiratory distress. HEART: Regular rate and rhythm. Normal peripheral pulses. ABDOMEN: Soft, nontender, nondistended. EXTREMITIES: Normal range of motion. No edema. SKIN: Warm, dry, no rash. NEURO: Alert and oriented x3. PSYCH: Normal mood and affect. Course Course Emergency Course: Patient resting comfortably. Troponins negative x2. Discharge home. Vital Signs Vital signs: Vital Signs Temperature 98.4 F 05/11/22 11:05 Pulse Rate 94 05/11/22 11:05 Respiratory Rate 18 05/11/22 11:05 Blood Pressure 177/83 H 05/11/22 11:05 Pulse Oximetry 99 05/11/22 11:05 Oxygen Delivery Room Air 05/11/22 11:05 Temperature 98.4 F 05/11
== END 2022-05-11 16:01 | disposition home or self-care (01) ==
PROVIDERS: Emergency Provider Emergency Medicine
DX: F41.9 Anxiety disorder, unspecified (principal); Z20.822 Contact with and (suspected) exposure to COVID-19; K58.9 Irritable bowel syndrome, unspecified; R73.03 Prediabetes; Z87.891 Personal history of nicotine dependence; R94.31 Abnormal electrocardiogram [ECG] [EKG]
CPT/HCPCS: 36415; 71046; 80053; 84484; 85025; 85610; 85730; 87636; 93005; 99284

== ENCOUNTER 2023-11-03 16:43 | Emergency (ER) | payer SELFPAY ==
--- NOTE | ~2023-11-03 | XR_ITS ---
XR chest 2V DATE: 11/03/2023 17:25 INDICATION: Cough, congestion, fever TECHNIQUE: 2 views COMPARISON: 05/11/2022 PA and lateral chest FINDINGS: Normal heart size. No hilar or mediastinal enlargement. No pulmonary infiltrate or consolid ation, pleural effusion or pulmonary vascular congestion or pneumothorax. Included skeletal structure s are unremarkable. IMPRESSION: No active cardiopulmonary disease Reviewed, dictated and finalized at location B.
--- NOTE | ~2023-11-03 | CT_ITS ---
EXAMINATION: CT abdomen pelvis w con DATE: 11/03/2023 19:29 INDICATION: Right upper quadrant abdominal pain. Nausea. TECHNIQUE: Computed tomography (CT) of the abdomen and pelvis was performed with 100 mL Omnipaque 350 intravenous contrast. Automated exposure control and iterative reconstruction technique were employe d. The dose-length product was 1193.64 mGy-cm. COMPARISON: None. FINDINGS: The visualized portions of the lung bases demonstrate groundglass opacities and nodules in lingula, consistent with pneumonia. No pleural effusion. The heart size is normal. No pericardial eff usion. There is diffuse hepatic steatosis. The gallbladder is normal. There is mild splenomegaly, lik j luis secondary to obesity. The adrenal glands, pancreas, and kidneys are normal. There are bilateral t ubal ligation clips. There are no dilated loops of bowel. The appendix is normal. There are no pathol ogically enlarged lymph nodes. There is no free intraperitoneal fluid. There is moderate lumbar spond ylosis and mild thoracic spondylosis. IMPRESSION: 1. Pneumonia in lingula. 2. Diffuse hepatic steatosis. Reviewed, dictated and finalized at location E.
[2023-11-03 17:04] VITALS: BP 150/105; PULSE 106; RESP 20; TEMP 37.9; O2SAT 94
--- NOTE | 2023-11-03 17:11 | ECG_ITS ---
SEE SCANNED COPY FOR CONFIRMED REPORT MTDD
--- NOTE | 2023-11-03 17:12 | ED.ABDPAIN ---
HPI - Abdominal Pain General Chief Complaint: Abdominal Pain Stated Complaint: abdomen pain Time Seen by Provider: 11/03/23 18:15 Focused HPI: 42-year-old female presents to the emergency department for sinus congestion and headache for 2 days and right upper quadrant abdominal pain that developed today. Patient is reporting associated cough and congestion. She states the pain in her right upper quadrant is a sharp and stabbing sensation. states pain feels better when she walks, worse when she sits for long periods of time. She reports subjective fevers, nausea. Denies vomiting or diarrhea. Prior abdominal surgeries include 3 sections and tubal ligation. GENERAL: Well-appearing, well-nourished, and in no acute distress. HEAD: Normocephalic, atraumatic. CHEST: Clear to auscultation. ?No respiratory distress. HEART: Regular rate and rhythm.? NEURO: ?Alert and oriented x3. Patient screened in triage and initial orders placed.? ?Additional care and disposition to be based upon?diagnostic testing and treatment. Related Data Allergies Allergy/AdvReac Type Severity Reaction Status Date / Time No Known Allergies Allergy Verified 11/03/23 17:14 PMF Past Medical History Medical History History of pre-eclampsia (2014) Irritable bowel syndrome Prediabetes Surgical History Surgical History H/O section History of 3 sections History of bunionectomy Family History Family History Mother , Age 60 of Heart Failure Diabetes mellitus Heart disease Father Diabetes mellitus Depression Bipolar 1 disorder Grandparent , Unknown No problems noted. Grandparent , Unknown No problems noted. Grandparent No problems noted. Grandparent Diabetes mellitus Liver failure Social History Social History Social History: Code status: Full code. Smoking status: Former smoker Additional smoking assessment comments: smoked for 15 years Alcohol intake: current Drinks per week: 14 Alcohol use details: has 2 beers or glasses of wine a day Substance use: never Substance use type: does not use Lack of Transportation: No Lack of Food: Never True Current Housing: I Have Housing Concerned About Future Housing: No Difficulty Paying Gas/Electric Bills: No Difficulty Paying for Meds: No Currently Unemployed: No Education: Associate Degree Difficulty w/ Childcare or Family Care: No Living arrangements: with family Additional living arrangements comments: The patient lives with her and 3 children in [place]. Occupation/Education: occupation Additional occupation/education comments: Works at [email or web address]. Spiritual care concerns: No Course Vital Signs Vital signs: Vital Signs Temperature 100.3 F H 11/03/23 17:04 Pulse Rate 106 H 11/03/23 17:04 Respiratory Rate 20 11/03/23 17:04 Blood Pressure 150/105 H 11/03/23 17:04 Pulse Oximetry 94 11/03/23 17:04 Oxygen Delivery Room Air 11/03/23 17:04 Temperature 100.3 F H 11/03/23 17:04 Pulse Rate 106 H 11/03/23 17:04 Respiratory Rate 20 11/03/23 17:04 Blood Pressure 150/105 H 11/03/23 17:04 Pulse Oximetry 94 11/03/23 17:04 Oxygen Delivery Room Air 11/03/23 17:04 MDM - Abdominal Pain Lab Data 11/03/23 18:31 11/03/23 18:31 Labs: Lab Results 11/03/23 11/03/23 Range/Units 18:31 20:55 WBC 9.2 (4.5-10.0) K/mm3 RBC 4.03 L (4.2-5.4) M/mm3 Hgb 13.0 (12.0-15.0) g/dL Hct 38.5 (37.0-47.0) % MCV 95.5 (80-100) fl MCH 32.3 (26-34) pg MCHC 33.8 (32-36) g/dl RDW 12.3 (11.5-14.5) % Plt Count 168 (150-375) k/mm3 MPV 9.5 (7.4-10.4) fl Immature Gran
--- NOTE | 2023-11-03 18:16 | ED.ABDPAIN ---
HPI - Abdominal Pain General Chief Complaint: Abdominal Pain Stated Complaint: abdomen pain Time Seen by Provider: 11/03/23 18:15 Source: patient and family Mode of arrival: ambulatory Limitations: no limitations History of Present Illness HPI narrative: 42 YEARS OLD WHITE FEMALE CAME TO THE EMERGENCY ROOM BY PRIVATE CAR, HOT OFTEN, RIGHT ABDOMINAL PAIN, COUGHING, RUNNY NOSE STARTED YESTERDAY, PATIENT DENIES AGGRAVATING OR RELIEVING FACTORS. THE ABOVE SYMPTOM ASSOCIATED WITH NAUSEA THE PATIENT TAKE ANY ANTIPYRETIC MEDICATION OVER THE LAST 24 HOURS. THE ABOVE SYMPTOMS YESTERDAY. ABDOMINAL PAIN DOES NOT RADIATE, DENIES AGGRAVATING OR RELIEVING FACTORS. HISTORY OF BILATERAL TUBAL LIGATION, SECTION X3. PATIENT SMOKES AND DRINKS NO DRUG ABUSE PAIN Related Data Allergies Allergy/AdvReac Type Severity Reaction Status Date / Time No Known Allergies Allergy Verified 11/03/23 17:14 Review of Systems Review of Systems: All systems reviewed & are unremarkable except as noted in HPI and below PMFSH Past Medical History Medical History History of pre-eclampsia (2014) Irritable bowel syndrome Prediabetes Surgical History Surgical History H/O section History of 3 sections History of bunionectomy Family History Family History Mother , Age 60 of Heart Failure Diabetes mellitus Heart disease Father Diabetes mellitus Depression Bipolar 1 disorder Grandparent , Unknown No problems noted. Grandparent , Unknown No problems noted. Grandparent No problems noted. Grandparent Diabetes mellitus Liver failure Social History Social History Social History: Code status: Full code. Smoking status: Former smoker Additional smoking assessment comments: smoked for 15 years Alcohol intake: current Drinks per week: 14 Alcohol use details: has 2 beers or glasses of wine a day Substance use: never Substance use type: does not use Lack of Transportation: No Lack of Food: Never True Current Housing: I Have Housing Concerned About Future Housing: No Difficulty Paying Gas/Electric Bills: No Difficulty Paying for Meds: No Currently Unemployed: No Education: Associate Degree Difficulty w/ Childcare or Family Care: No Living arrangements: with family Additional living arrangements comments: The patient lives with her and 3 children in [place]. Occupation/Education: occupation Additional occupation/education comments: Works at [employer]. Spiritual care concerns: No Exam Narrative: GENERAL APPEARANCE: WELL-DEVELOPED, WELL-NOURISHED SKIN: NORMAL COLOR HEAD: NORMOCEPHALIC, NONTRAUMATIC EYES: CLEAR CONJUNCTIVA ENT: OROPHARYNX NORMAL, EARS NORMAL, NOSE NORMAL NECK: SUPPLE, NONTENDER CHEST AND RESPIRATORY: AIRWAY PATENT, NO RESPIRATORY DISTRESS, NO ACCESSORY MUSCLE USE HEART: REGULAR RATE/RHYTHM ABDOMEN: SOFT, FIND RIGHT MID ABDOMINAL TENDERNESS, NO REBOUND OR GUARDING, NO RASH, NO HEPATOMEGALY OR GOING TO, NO ORGANOMEGALY, QUIET BOWEL SOUNDS VASCULAR: NORMAL PERIPHERAL PULSES, NORMAL CAPILLARY REFILL. MUSCULOSKELETAL: NORMAL RANGE OF MOTION, NONTENDER BACK NEUROLOGIC: ALERT AND ORIENTED ?3, WATER PLUMBER IS NORMAL TESTED, NO GROSS MOTOR DEFICIT Course Vital Signs Vital signs: Vital Signs Temperature 37.9 C H 11/03/23 17:04 Pulse Rate 106 H 11/03/23 17:04 Respiratory Rate 20 11/03/23 17:04 Blood P
[2023-11-03 18:36] LABS: Basophils Percent Auto 0.3 % (0.2-1.2); Eosinophils Absolute Auto 0.2 K/mm3 (0-0.3); Eosinophils Percent Auto 2.1 % (0-4.4); Hematocrit 38.5 % (37.0-47.0); Immature Granulocyte Absolute 0.03 K/mm3 (0.00-0.031); Immature Granulocyte Percent A 0.3 % (0-0.5); Lymphocytes Absolute Auto 1.88 K/mm3 (0.9-3.2); Lymphocytes Percent Auto 20.3 % (18.3-44.2); Mean Corpuscular HGB Conc 33.8 g/dl (32-36); Mean Corpuscular Hemoglobin 32.3 pg (26-34); Mean Corpuscular Volume 95.5 fl (80-100); Mean Platelet Volume 9.5 fl (7.4-10.4); Monocytes Absolute Auto 0.4 K/mm3 (0.1-0.6); Monocytes Percent Auto 4.5 % (2.6-8.5); Neutrophils Absolute Auto 6.7 K/mm3 (1.3-6.7); Neutrophils Percent Auto 72.5 % (45.5-73.1); Platelet Count Result 168 k/mm3 (150-375); Red Blood Count 4.03 M/mm3 (4.2-5.4); Red Cell Distribution Width 12.3 % (11.5-14.5); White Blood Count 9.2 K/mm3 (4.5-10.0)
[2023-11-03 19:05] LABS: Lactic Acid Reflex 0.9 mmol/L (0.7-2.0)
[2023-11-03 19:06] LABS: Alanine Aminotransferase 67 U/L (6-35); Albumin Level 4.4 g/dL (3.5-5.1); Alkaline Phosphatase 86 U/L (38-126); Anion Gap 7 mmol/L (4-12); Aspartate Amino Transferase 47 U/L (14-36); Bilirubin,Total 0.8 mg/dL (0.2-1.3); Blood Urea Nitrogen 11 mg/dL (7-17); Calcium 9.4 mg/dL (8.4-10.2); Carbon Dioxide 26 mmol/L (22-30); Chloride 101 mmol/L (98-107); Estimated CRCL calculation 115 ml/min; Estimated Glomerular Filt Rate > 60; Glucose 112 mg/dL (65-110); Lipase 52 U/L (23-300); Potassium 3.6 mmol/L (3.4-5.0); Sodium 134 mmol/L (137-145)
[2023-11-03 19:12] LABS: Influenza A QL RT-PCR Negative (Negative); Influenza B QL RT-PCR Negative (Negative); RSV RNA, RT-PCR Negative (Negative); SARS-CoV-2 RNA PCR Negative (Negative)
[2023-11-03 19:17] LABS: Appearance Urine Clear (Clear); Bacteria Urine 4+ /hpf; Bilirubin Urine Negative (Negative); Blood Urine Negative (Negative); Color Urine Yellow (Yellow); Glucose Urine UA Negative (Negative); Ketones Urine Negative (Negative); Leukocyte Esterase Ur Negative LEU/UL (Negative); Nitrate Urine Positive (Negative); Non Pathogenic Casts 0-2; Protein Urine Negative (Negative); RBC Urine 0-2 /hpf (0-2); Squamous Epithelial Cell Urine None Seen /hpf (Few); WBC Urine 0-5 /hpf (0-3); pH Urine 7.5 (5.0-9.0)
[2023-11-03 19:46] LABS: Add Urine Microscopic? YES
[2023-11-03] MEDS: ACETAMINOPHEN 500 MG TABLET 1000 MG PO (21:00)
[2023-11-03] MEDS: AZITHROMYCIN 250 MG TABLET 500 MG PO (21:01)
[2023-11-03] MEDS: KETOROLAC 30 MG/ML VIAL (*BKC) IV PUSH (21:02)
[2023-11-03] MEDS: SODIUM CHLORIDE 0.9% IV 1,000 ML 999 ML IV CONT (21:02)
[2023-11-03] MEDS: ONDANSETRON INJ 4 MG/2 ML VIAL IV PUSH (21:02)
[2023-11-03 21:15] LABS: Lactic Acid Reflex 0.7 mmol/L (0.7-2.0)
[2023-11-03 21:18] LABS: CRP 2.9 mg/dL (<1.0)
== END 2023-11-03 21:42 | disposition home or self-care (01) ==
PROVIDERS: Physician Assistant; Emergency Provider Emergency Medicine
DX: J18.9 Pneumonia, unspecified organism (principal); N39.0 Urinary tract infection, site not specified; Z20.822 Contact with and (suspected) exposure to COVID-19; Z87.891 Personal history of nicotine dependence; K76.0 Fatty (change of) liver, not elsewhere classified
CPT/HCPCS: 36415; 71046; 74177; 80053; 81001; 81025; 83605; 83690; 85025; 86140; 87040; 87637; 93005; 96365; 96375; 99284; A9270; J0696; J1885; J2405; J7030; Q9967

== ENCOUNTER 2025-05-18 10:45 | Emergency (ER) | payer OTHER, SELFPAY ==
[2025-05-18] VITALS (9 sets, daily range): BP systolic 154–181; BP diastolic 92–101; PULSE 86; RESP 20; TEMP 37.1; O2SAT 95–98
--- NOTE | ~2025-05-18 | CT_ITS ---
EXAMINATION: CT soft tissue neck w con DATE: 05/18/2025 12:29 INDICATION: Dysphagia. TECHNIQUE: Computed tomography (CT) of the neck was performed with 75 mL Omnipaque-350 intravenous contrast. Automated exposure control and iterative reconstruction technique were employed. The dose-length product was 577.01 mGy-cm. COMPARISON: Cervical spine CT 05/08/2021 FINDINGS: There are no pathologically enlarged lymph nodes. The pharynx and larynx are normal. The paranasal sinuses are clear. The mastoid air cells are normal. The orbits are normal. There is mild cervical spondylosis. There are carious lesions in multiple teeth. IMPRESSION: 1. Dental disease. Reviewed, dictated and finalized at location E. TIC EXTRUDING MACHINE OPERATOR IMPRESSION: 1. Dental disease.
--- OUTSIDE RECORDS SUMMARY | 2025-05-18 10:47 | XMS_ITS | Clinical Summary ---
Author Organization [facility] [address] Address [address] [place] [id number] Care Team Providers Care Sex Therapist Name Role Phone Estrella Blevins MD Unavailable [phone] Natalee Aguilera MD Primary Care Provider Allergies No known active allergies Medications aspirin 81 mg enteric coated tablet Take 1 tablet (81 mg total) by mouth daily 2 Active hydrOXYzine (ATARAX) 25 mg tabletIndications :Chronic anxiety Take 1 tablet (25 mg total) by mouth every 8 (eight) hours as needed for anxiety 45 tablet 2 Active busPIRone (BUSPAR) 15 mg tabletIndications :Generalized Anxiety Disorder Take 1 tablet (15 mg total) by mouth 2 (two) times a day 60 tablet 1 2 Active amLODIPine (NORVASC) 10 mg tabletIndications :Essential (primary) hypertension Take 1 tablet (10 mg total) by mouth daily 90 tablet 3 Active Active Problems Problem Noted Date Diagnosed Date Sleep apnea, unspecified 05/29/2019 Hyperlipidemia 02/16/2019 Prediabetes 02/16/2019 Obesity 02/16/2019 Essential (primary) hypertension 02/13/2019 Chronic anxiety 02/13/2019 Resolved Problems Problem Noted Date Diagnosed Date Resolved Date Abnormal liver function tests 02/16/2019 12/29/2021 Immunizations Immunization Administration Dates Next Due Influenza, Quadrivalent, Split, Intramuscular Surgical History Surgery Date Site/Laterality Comments ANKLE SURGERY tendon repair BUNIONECTOMY Right SECTION x3 Medical History Medical History Date Comments Preeclampsia Primary hypertension Prediabetes High cholesterol Family History Medical History Relation Name Comments Coronary artery disease Father Diabetes type II Father Hyperlipidemia Father Diabetes Maternal Grandfather Diabetes Maternal Grandmother Coronary artery disease Mother Diabetes type II Mother Hyperlipidemia Mother Diabetes Paternal Grandfather Diabetes Paternal Grandmother Alcohol abuse Sister Liver disease Sister Relation Name Status Comments Father Maternal Grandfather Maternal Grandmother Mother Paternal Grandfather Paternal Grandmother Sister Social History Tobacco Use Types Packs/Day Years Used Date Smoking Tobacco: Former Cigarettes 1.5 16 1 999 - 2015 Smokeless Tobacco: Never AUDIT-C Answer Date Recorded Q1: How often do you have a drink containing alcohol? Never 12/29/2021 Q2: How many drinks containi ng alcohol do you have on a typical day when you are drinking? Patient does not drink Frequency of Binge Drinking Not on file 12/17 PHQ-2 Answer Date Recorded PHQ-2 Total Score (If total score is 3 or more points, staff should administer the PHQ-9) 0 12/29/2021 Personal Safety Answer Date Recorded Getting School Help Needed Not on file 07/04 Comments No Sex and Gender Information Value Date Recorded Sex Assigned at Not on file Legal Sex Female 8:14 AM CDT Gender Identity Not on file Sexual Orientation Not on file Last Filed Vital Signs Vital Sign Reading Time Taken Comments Blood Pressure 144/86 06/16/2022 1:31 PM VENEER PATCHER Pulse 76 06/16/2022 1:12 PM VENEER PATCHER Temperature - - Respiratory Rate 14 12/29/2021 10:56 AM CDT Oxygen Saturation - - Inhaled Oxygen Concentration - - Weight 98.7 kg (217 lb 9.6 oz) 06/16/2022 1:12 P M VENEER PATCHER Height 175.3 cm (5' 9) 06/16/2022 1:12 PM VENEER PATCHER Body Mass Index 32.13 06/16/2022 1:12 PM VENEER PATCHER Plan of Treatment Health Maintenance Due Date Last Done Comments Breast Cancer Screening-Mammogram 1981 Cervical Cancer Screening 1981 Hepatitis C Screening 1981 DTaP/Tdap/Td Vaccine (1 - Tdap) 1992 Varicella Vaccines (1 of 2 - 13+ 2-dose series) 1994 Hepatitis B Screening 12/06/1999 HPV Vaccines (1 - 3-dose SCD M series) 2008 Depression Screening 12/29/2022 12/29/2021 Regular Well Visit/Exam 18-64 12/29/2022 12/29/2021 Covid-19 Vaccine (2024-2 6 season) 2025 06/23/2021, 09/06/2020, 08/15/2020 Influenza Vaccine (#1) 2025 04/05/2018 Pneumococcal vaccine <65 Aged Out No longer eligible based on patient's age to complete this topic Insurance Rentalutions OOS Care Teams Sex Therapist Relationship Specialty Start Date End Date Natalee Aguilera MD PCP - General Family Practice 05/05/22 Estrella Blevins MD Neurology 05/05/22
--- OUTSIDE RECORDS SUMMARY | 2025-05-18 10:47 | XMS_ITS | Clinical Summary ---
Author Organization [facility] Address [facility] [place] [address] Care Team Providers Care Electronic Die Maker Name Role Phone Francisco J Bui MD Primary Care Provider Social History Tobacco Use Types Packs/Day Years Used Date Smoking Tobacco: Never Assessed Comments Unknown Sex and Gender Information Value Date Recorded Sex Assigned at Female 12/17/2024 7:12 AM CDT Legal Sex Female 9:30 AM CDT Gender Identity Not on file Sexual Orientation Not on file Plan of Treatment Health Maintenance Due Date Last Done Comments Cervical Cancer Screening Pa p Smear (Age 30 to 64) Every 3 Years 1981 Annual Physical 1984 Hepatitis C 12/06/1999 DTaP, Tdap and Td Vaccines ( 1 - Tdap) 2000 Hepatitis B Vaccines (1 of 3 - 19+ 3-dose series) 2000 HPV Vaccines (1 - 3-dose SCD M series) 2008 Cervical Cancer Screening Pa p with HPV Testing (Age 30 to 64) Every 5 Years 12/06/2011 Cervical Cancer Screening wi th HPV 12/06/2011 Mammogram Screening 2021 COVID-19 Vaccine (2024-2 6 season) 2025 06/23/2021, 09/06/2020, 08/15/2020 Influenza Adult (#1) 2025 04/05/2018, 02/18/2016 Hepatitis A Vaccines Aged Out No long er eligible based on patient's age to complete this topic Meningococcal B Vaccine Aged Out No l onger eligible based on patient's age to complete this topic Meningococcal Vaccine Aged Out No dedra christiano eligible based on patient's age to complete this topic Pneumococcal Vaccine: Pediatrics (0 to 5 Years) and At-Risk Patients (6 to 49 Years) Aged Out No longer eligible b ased on patient's age to complete this topic RSV Immunizations Under 20 Months Aged Out No longer eligible b ased on patient's age to complete this topic Insurance [place] [address] Care Teams Electronic Die Maker Relationship Specialty Start Date End Date Francisco J Bui MD [address] [id number] PCP - General FAMILY PRACTICE 12/17/24
--- NOTE | 2025-05-18 11:11 | ED_ITS ---
HPI - General Adult General Chief complaint: Skin/Abscess/Foreign Body Stated complaint: feel like something stuck in back of throat Time Seen by Provider: 05/18/25 10:57 History of Present Illness HPI narrative: 44-year-old female present to the emergency department for evaluation for sore throat difficulty swallowing. Patient reports this started a few days ago. Patient has been attempting symptomatic treatment including gargling. Patient is able to handle her own secretions. Patient denies any difficulty breathing denies any shortness of breath. Patient reports a fullness in the upper part of her throat. Related Data Allergies Allergy/AdvReac Type Severity Reaction Status Date / Time No Known Allergies Allergy Verified 11/03/23 17:14 Review of Systems 2 Review of Systems: All systems reviewed & are unremarkable except as noted in HPI and below PMFSH Past Medical History Medical History History of pre-eclampsia (2014) Irritable bowel syndrome Prediabetes Surgical History Surgical History H/O section History of 3 sections History of bunionectomy Family History Family History Mother , Age 60 of Heart Failure Diabetes mellitus Heart disease Father Diabetes mellitus Depression Bipolar 1 disorder Grandparent , Unknown No problems noted. Grandparent , Unknown No problems noted. Grandparent No problems noted. Grandparent Diabetes mellitus Liver failure Social History Social History Social History: Code status: Full code. Smoking status: Former smoker Additional smoking assessment comments: smoked for 15 years Alcohol intake: current Drinks per week: 14 Alcohol use details: has 2 beers or glasses of wine a day Substance use: never Substance use type: does not use Lack of Transportation: No Lack of Food: Never True Current Housing: I Have Housing Concerned About Future Housing: No Difficulty Paying Gas/Electric Bills: No Difficulty Paying for Meds: No Currently Unemployed: No Education: Associate Degree Difficulty w/ Childcare or Family Care: No Living arrangements: with family Additional living arrangements comments: The patient lives with her and 3 children in [place]. Occupation/Education: occupation Additional occupation/education comments: Works at [employer]. Spiritual care concerns: No Exam 2 Narrative: APPEARANCE: Well appearing, no pain, no distress, well-nourished. HEAD: normocephalic, atraumatic. EYES: PERRLA/EOMI, conjunctivae clear. NOSE: Normal no drainage EARS:TMS clear with good light reflex. THROAT: Pharynx clear, no exudate. NECK: no posterior pharynx swelling, normal uvula, no asymmetry in the posterior pharynx, no stridor, patient does have anterior lymphadenopathy RESPIRATORY: Airway patent, respirations nonlabored. Clear to auscultation bilaterally, no rales, rhonchi, wheezing. CARDIOVASCULAR: Regular rate and rhythm without murmurs rubs or gallops. ABDOMINAL: Soft, nontender, nondistended, normal bowel sounds MUSCULOSKELETAL: Moves all extremities. Strength/ROM intact, No edema, No calf tenderness. NEURO: Alert. Cranial nerves II through XII intact. Good gait. Good coordination SKIN: Warm, dry. Normal Color Course Vital Signs Vital signs: Vital Signs Temperature 98.7 F 05/18/25 11:02 Pulse Rate 86 05/18/25 11:02 Respiratory Rate 20 05/18/25 11:02 Blood Pressure 181/101 H 05/18/25 11:02 Pulse Oximetry 98 05/18/25 11:02 Oxygen Delivery Room Air 05/18/25 11:02 Temperature 98.7 F 05/18/25 11:02 Pulse Rate 86 05/18/25 11:02 Respiratory Rate 20 05/18/25 11:02 Blood Pressure 154/92 H 05/18/25 12:16 Pulse Oximetry 96 05/18/25 13:30 Oxygen Delivery Room Air 05/18/25 11:02 Medical Decision Making [facility] Narrative Medical decision making narrative: 44-year-old female presenting to the emergency department for evaluation for pain with swallowing. Patient is tolerating fluids and have the current secretions. Patient is currently afebrile with no leukocytosis hemoglobin of 14.7. No abnormalities on her PT PTT. Patient did have a creatinine 0.47 which is similar to her baseline. Patient was negative for mono and for group a strep. On re-evaluation patient states that she feels mildly improved. CT scan was negative for posterior pharyngeal abscess or peritonsillar abscess. Patient was treated with a dose of dexamethasone. CT scan was concerning for possible dental caries. Patient does have follow-up scheduled with her dentist on June 03. Patient be started on Augmentin in the emergency department. Differential Diagnosis Differential Diagnosis: Posterior pharyngeal abscess, peritonsillar abscess, pharyngitis Vital Signs Vital Signs: Vital Signs Temperature 98.7 F 05/18/25 11:02 Pulse Rate 86 05/18/25 11:02 Respiratory Rate 20 05/18/25 11:02 Blood Pressure 181/101 H 05/18/25 11:02 Pulse Oximetry 98 05/18/25 11:02 Oxygen Delivery Room Air 05/18/25 11:02 Temperature 98.7 F 05/18/25 11:02 Pulse Rate 86 05/18/25 11:02 Respiratory Rate 20 05/18/25 11:02 Blood Pressure 154/92 H 05/18/25 12:16 Pulse Oximetry 96 05/18/25 13:30 Oxygen Delivery Room Air 05/18/25 11:02 Lab Data Lab results reviewed: Yes I reviewed the patient's lab results. 05/18/25 11:22 05/18/25 11:22 Labs: Lab Results 05/18/25 Range/Units 11:22 WBC 7.7 (4.5-10.0) K/mm3 RBC 4.25 (4.2-5.4) M/mm3 Hgb 14.7 (12.0-15.0) g/dL Hct 43.0 (37.0-47.0) % MCV 101.2 H (80-100) fl MCH 34.6 H (26-34) pg MCHC 34.2 (32-36) g/dl RDW 12.4 (11.5-14.5) % Plt Count 205 (150-375) k/mm3 MPV 9.8 (7.4-10.4) fl Immature Gran % (Auto) 0.3 (0-0.5) % Neut % (Auto) 64.7 (45.5-73.1) % Lymph % (Auto) 28.2 (18.3-44.2) % Weld % (Auto) 4.1 (2.6-8.5) % Eos % (Auto) 2.2 (0-4.4) % Baso % (Auto) 0.5 (0.2-1.2) % Lymph # (Auto) 2.16 (0.9-3.2) K/mm3 Weld # (Auto) 0.3 (0.1-0.6) K/mm3 Eos # (Auto) 0.2 (0-0.3) K/mm3 Baso # (Auto) 0.0 (0.0-0.1) K/mm3 Abs Immat Gran (auto) 0.02 (0.00-0.031) K/mm3 Absolute Neuts (auto) 5.0 (1.3-6.7) K/mm3 Absolute Nucleated RBC 0.000 (0.0-0.012) K/mm3 Nucleated RBC % 0.0 (0.0-0.2) % PT 14.6 (11.1-14.7) Seconds INR 1.2 APTT 31.6 (22.3-36.8) Seconds Sodium 134 L (137-145) mmol/L Potassium 4.4 (3.4-5.0) mmol/L Chloride 100 (98-107) mmol/L Carbon Dioxide 29 (22-30) mmol/L Anion Gap 5 (4-12) mmol/L BUN 5 L D (7-17) mg/dL Creatinine 0.47 L (0.7-1.0) mg/dL Estim Creat Clear Calc 172 ml/min Estimated GFR > 60 (59 - ) Glucose 136 H (65-110) mg/dL Lactic Acid 1.8 (0.7-2.0) mmol/L Calcium 9.9 (8.4-10.2) mg/dL Total Bilirubin 0.7 (0.2-1.3) mg/dL AST 92 H (14-36) U/L ALT 86 H (6-35) U/L Alkaline Phosphatase 103 (38-126) U/L Total Protein 8.0 (6.3-8.2) g/dL Albumin 4.3 (3.5-5.1) g/dL Monoscreen Negative (Negative) Group A Strep (PCR) Not detected (Negative) Imaging Data Radiologist's impression: Impressions Soft Tissue Neck CT 05/18/25 12:34 IMPRESSION: 1. Dental disease. Discharge Plan Discharge Clinical Impression: Difficulty swallowing, Dental caries Patient Disposition: Home Condition: Stable Instructions: Antibiotic Form, Pharyngitis (ED), Toothache (ED) Additional Instructions: Antibiotic as directed until completed. And ibuprofen for pain control. Continue to have close follow-up with your dentist. Have close follow-up with your primary care physician. If you have any worsening symptoms then please call or return to the emergency department. Patient Language: Liberian Prescriptions: New amoxicillin-pot clavulanate 875-125 mg tablet 1 tablet PO Q12H 7 Days Qty: 14 0RF No Action levofloxacin 750 mg tablet 750 mg PO DAILY Qty: 7 5RF amlodipine [Norvasc] 5 mg Tablet 5 mg PO QAM Qty: 30 0RF Follow-up/Referrals: PHYSICIAN NOT ON STAFF,NONSTAFF [Primary Care Provider]
[2025-05-18] MEDS: dexAMETHasone SOD PHOS INJ 10 MG/ML 1 ML VIAL IM (11:30)
[2025-05-18 11:42] LABS: Hematocrit 43.0 % (37.0-47.0); Hemoglobin 14.7 g/dL (12.0-15.0); Immature Granulocyte Percent A 0.3 % (0-0.5); Lymphocytes Absolute Auto 2.16 K/mm3 (0.9-3.2); Mean Corpuscular HGB Conc 34.2 g/dl (32-36); Mean Corpuscular Hemoglobin 34.6 pg (26-34); Mean Corpuscular Volume 101.2 fl (80-100); Nucleated Red Blood Cells Absolute Auto 0.000 K/mm3 (0.0-0.012); Nucleated Red Blood Cells Perc 0.0 % (0.0-0.2); Platelet Count Result 205 k/mm3 (150-375); Red Blood Count 4.25 M/mm3 (4.2-5.4); White Blood Count 7.7 K/mm3 (4.5-10.0)
[2025-05-18 11:55] LABS: INR 1.2; Partial Thromboplastin Time 31.6 Seconds (22.3-36.8); Prothrombin Time 14.6 Seconds (11.1-14.7)
[2025-05-18 11:59] LABS: Alanine Aminotransferase 86 U/L (6-35); Albumin Level 4.3 g/dL (3.5-5.1); Alkaline Phosphatase 103 U/L (38-126); Anion Gap 5 mmol/L (4-12); Aspartate Amino Transferase 92 U/L (14-36); Bilirubin,Total 0.7 mg/dL (0.2-1.3); Blood Urea Nitrogen 5 mg/dL (7-17); Calcium 9.9 mg/dL (8.4-10.2); Carbon Dioxide 29 mmol/L (22-30); Chloride 100 mmol/L (98-107); Estimated CRCL calculation 172 ml/min; Estimated Glomerular Filt Rate > 60; Glucose 136 mg/dL (65-110); Potassium 4.4 mmol/L (3.4-5.0); Sodium 134 mmol/L (137-145); Total Protein 8.0 g/dL (6.3-8.2)
[2025-05-18 12:06] LABS: Strep Group A RT-PCR NOT DETECTED (Negative)
[2025-05-18 12:17] LABS: Negative Monotest Control Negative (Negative); Positive Monotest Control Positive (Positive)
== END 2025-05-18 15:26 | disposition home or self-care (01) ==
PROVIDERS: Emergency Provider Emergency Medicine
DX: R13.10 Dysphagia, unspecified (principal); K02.9 Dental caries, unspecified; R73.03 Prediabetes; K58.9 Irritable bowel syndrome, unspecified; Z87.891 Personal history of nicotine dependence
CPT/HCPCS: 36415; 70491; 80053; 83605; 85025; 85610; 85730; 86308; 87651; 96374; 99284; A9270; J1100; Q9967